=== PATIENT | female | born 1960 | race Caucasian/White ===

== ENCOUNTER → 2018-03-12 | Outpatient (CLI) | payer BC ==
--- NOTE | 2018-03-12 10:07 | PCVCIMAG ---
APPROVED REPORT Study performed: 03/12/2018 08:46:34 EXAM: Comprehensive 2D, Doppler, and color-flow Echocardiogram Patient Location: Echo lab Status: routine BSA: 1.77 HR: 80 bpmBP: 120/70 mmHg Rhythm: NSR Other Information Study Quality: Adequate Indications Mitral valve repair, parox A Fib 2D Dimensions IVSd: 9.12 (7-11mm) LVDd: 38.84 mm PWd: 9.47 (7-11mm) LVDs: 32.45 (25-40mm) Left Atrium: 35.02 (27-40mm) Aortic Root: 30.24 mm LV Single Plane 4CH: 53.25 % LV Single Plane 2CH: 59.88 % Biplane EF: 57.1 % Volumes Left Atrial Volume (Systole) Single Plane 4CH: 39.07 mLSingle Plane 2CH: 59.29 mL LA ESV Index: 30.00 mL/m2 Aortic Valve AoV Peak Tylor.: 1.15 m/s AO Peak Gr.: 5.32 mmHgLVOT Max P.85 mmHg LVOT Max V: 0.84 m/s Mitral Valve E/A Ratio: 1.2 MV Decel. Time: 206.37 ms MV E Max Tylor.: 1.07 m/s MV A Tylor.: 0.86 m/s IVRT: 86.51 ms Pulmonary Valve PV Peak Tylor.: 0.81 m/sPV Peak Gr.: 2.63 mmHg Pulmonary Vein P Vein S: 0.27 m/sP Vein A: 0.35 m/s P Vein D: 0.41 m/sP Vein A Dur.: 117.6 msec P Vein S/D Ratio: 0.66 Tricuspid Valve TR Peak Tylor.: 2.26 m/s TR Peak Gr.: 20.35 mmHg Left Ventricle The left ventricle is normal size. There is normal LV segmental wall motion. There is normal left ventricular wall thickness. Left ventricular systolic function is normal. The left ventricular ejection fraction is within the normal range. LVEF is >55%. Right Ventricle The right ventricle is normal size. The right ventricular systolic function is normal. Atria The left atrium size is normal. Right atrium is moderately dilated. Aortic Valve The aortic valve is normal in structure. No aortic regurgitation is present. There is no aortic valvular stenosis. Mitral Valve Mitral valve posterior leaflet repair. Annuloplasty ring noted. Moderate mitral regurgitation. No evidence of mitral valve stenosis. Tricuspid Valve The tricuspid valve is normal in structure. Mild tricuspid regurgitation with PAP of 30 mmHg. Pulmonic Valve The pulmonary valve is normal in structure. There is no pulmonic valvular regurgitation. Great Vessels The aortic root is normal in size. IVC is normal in size and collapses >50% with inspiration. Pericardium There is no pericardial effusion. There is no pleural effusion. <Conclusion> Left ventricular systolic function is normal. There is normal LV segmental wall motion. LVEF 65%. Right atrium is moderately dilated. The aortic valve is normal in structure. No aortic regurgitation or stenosis. Mitral valve posterior leaflet repair. Annuloplasty ring noted. Moderate mitral regurgitation. Mild tricuspid regurgitation with pulmonary artery pressure of 30 mmHg. There is no pericardial effusion.
== END | disposition home or self-care (01) ==
LOC: PCVCIMAG 10:19
PROVIDERS: ATTEND Internal Medicine
DX: I08.1 Rheumatic disorders of both mitral and tricuspid valves (principal); I48.0 Paroxysmal atrial fibrillation
CPT/HCPCS: 93306